=== PATIENT | female | born 1980 | race Caucasian/White ===

== ENCOUNTER 2017-10-14 11:23 | Emergency (ER) | END 2017-10-14 14:01 | disposition home or self-care (01) ==

== ENCOUNTER 2018-10-07 12:27 | Emergency (ER) | payer MEDICAID ==
[~2018-10-07] VITALS: Ht 162.6 cm; Wt 55.5 kg
[~2018-10-07 12:27] MED LIST: ACET500C5 PO; NITR-58 PO
[2018-10-07 12:31] VITALS: BP 159/77; PULSE 103; RESP 18; Ht 162.6 cm; Wt 55.5 kg
[2018-10-07] MEDS ORDERED: ACETAMINOPHEN 325 MG TAB PO ONE (13:30)
[2018-10-07] MEDS ORDERED: IBUP-1561 PO (14:23)
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
== END 2018-10-07 15:17 | disposition home or self-care (01) ==
LOC: FTE 12:27
DX: S00.83XA Contusion of other part of head, initial encounter (principal); Y04.8XXA Assault by other bodily force, initial encounter
CPT/HCPCS: 70450; 70486; Z7502; Z7610